=== PATIENT | male | born 1950 | race Caucasian/White ===

== ENCOUNTER 2019-03-21 06:36 | Day surgery (SDC) | payer MEDICARE, OTHER ==
[2019-03-21] MEDS ORDERED: LIDOCAINE-MPF 2% 5 ML VIAL MC ONE (07:53)
[2019-03-21] MEDS ORDERED: PROPOFOL 200 MG/20 ML BOTTLE IV ONE (07:53)
== END 2019-03-21 08:53 | disposition home or self-care (01) ==
LOC: DS 06:36
PROVIDERS: ATTEND Surgery
DX: K31.84 Gastroparesis (principal); K29.70 Gastritis, unspecified, without bleeding; K29.80 Duodenitis without bleeding; K44.9 Diaphragmatic hernia without obstruction or gangrene; I10 Essential (primary) hypertension
CPT/HCPCS: 43239; 88305; 88312; 88342; J3490; J7120; A4217; A4663